=== PATIENT | male | born 1995 | race Caucasian/White ===

== ENCOUNTER 2025-03-03 08:48 | Emergency (ER) | payer BC, SELFPAY ==
[2025-03-03 09:00] VITALS: BP 122/75; PULSE 65; RESP 16; TEMP 36.7; O2SAT 97
--- NOTE | 2025-03-03 09:13 | XR_ITS ---
Examination: Right elbow 3 views Technique: Elbow AP, oblique, lateral 3 views Exam date and time: March 03, 2025 0943 hrs. Indications: Patient fell 2 days ago with injury to the elbow, elbow pain. Findings: No fracture or dislocation. No foreign body Impression: No fracture or dislocation..
--- NOTE | 2025-03-03 09:21 | EDNOTE_ITS ---
Upper Extremity Injury RME/HPI General Chief Complaint: Extremity Injury, Upper Stated Complaint: POSS. R) ELBOW DISLOCATION, HAPPENED YESTERDAY Time Seen by Provider: 03/03/25 08:53 Source: patient Arrival date/time: 03/03/25 08:48 29-year-old male with no known medical history presents to the emergency room with a chief complaint of pain and tenderness to his right elbow after a ground- level fall that occurred yesterday afternoon. Mode of arrival: ambulatory Limitations: no limitations Related Data Allergies Allergy/AdvReac Type Severity Reaction Status Date / Time No Known Allergies Allergy Verified 03/03/25 08:52 Review of Systems Review of Systems Systems Reviewed: All systems reviewed, normal except as documented Constitutional Constitutional: Reports system reviewed and no additional complaints, except as documented, Denies fatigue, Denies fever(s), Denies headache(s) and Denies weakness Eyes Eyes: Reports system reviewed and no additional complaints, except as documented, Denies blurry vision and Denies change in vision ENT Ears, Nose, Mouth, and Throat: Reports system reviewed and no additional complaints, except as documented, Denies otalgia, Denies headache(s), Denies nasal congestion, Denies throat swelling and Denies vertigo Cardiovascular Cardiovascular: Reports system reviewed and no additional complaints, except as documented, Denies chest pain, Denies dyspnea and Denies dyspnea on exertion Respiratory Respiratory: Reports system reviewed and no additional complaints, except as documented, Denies chest congestion, Denies cough, Denies dyspnea, Denies dyspnea on exertion and Denies wheezing Gastrointestinal Gastrointestinal: Reports system reviewed and no additional complaints, except as documented, Denies abdominal pain, Denies cramping, Denies nausea and Denies vomiting Genitourinary Genitourinary: Reports system reviewed and no additional complaints, except as documented, Denies dysuria and Denies hematuria Musculoskeletal Musculoskeletal: Reports system reviewed and no additional complaints, except as documented, Denies back pain, Reports joint swelling and Reports limited range of motion Integumentary/Breasts Skin/Breast: Reports system reviewed and no additional complaints, except as documented and Denies wounds Neurologic Neurologic: Reports system reviewed and no additional complaints, except as documented, Denies confusion, Denies headache(s), Denies lack of coordination, Denies vertigo and Denies weakness Psychiatric Psychiatric: Reports system reviewed and no additional complaints, except as documented, Denies anxiety, Denies confusion, Denies depression, Denies paranoia, Denies suicidal ideation and Denies tactile hallucinations Endocrine Endocrine: Reports system reviewed and no additional complaints, except as documented and Denies fatigue Hematologic/Lymphatic Hematologic/Lymphatic: Reports system reviewed and no additional complaints, except as documented and Denies lymphadenopathy Allergic/Immunologic Allergic/Immunologic: Reports system reviewed and no additional complaints, except as documented, Denies throat swelling, Denies urticaria and Denies wheezing Past Medical History Past Medical History CARDIAC: Negative Congestive Heart Failure RESPIRATORY: Negative Chronic Obstructive Pulmonary Disease (COPD) GENITOURINARY: Negative Renal Disease ENDOCRINE: Negative Diabetes Mellitus Type 1 or Diabetes Mellitus Type 2 Social History SMOKING STATUS: Current every day smoker ED Exam General Limitations: Present no limitations General appearance: Present alert and in no apparent distress Head Head exam: Present atraumatic Eye Eye exam: Present normal appearance, PERRL and EOMI ENT ENT exam: Present normal exam, normal oropharynx and mucous membranes moist Neck Neck exam: Present normal inspection, full ROM and trachea midline Chest Chest inspection: Present normal inspection and symmetric chest wall rise Respiratory Respiratory exam: Present normal lung sounds bilaterally Cardiovascular Cardiovascular exam: Present regular rate, normal rhythm and normal heart sounds Abdominal Exam Abdominal exam: Present soft and normal bowel sounds Extremities Exam Extremities exam: Present normal inspection and full ROM Expanded Upper Extremity Exam Shoulder exam: Present normal inspection Arm exam: Present normal inspection Elbow exam: Present tenderness, swelling, pain w/ pronation/supination and tenderness over radial head; Absent deformity Back Exam Back exam: Present normal inspection and full ROM Neurological Exam Neurological exam: Present alert, oriented X3 and CN II-XII intact Psychiatric Psychiatric exam: Present normal affect and normal mood Skin Skin exam: Present warm, dry, intact and normal color Course Quality Measures none Orders Category Date Time Status jorje wrap [Splint / Immobilizer] STAT Care 03/03/25 11:10 Active XR elbow comp RT min 3V Stat Exams 03/03/25 09:13 Completed Vital Signs Vital signs: Vital Signs Temperature 98.0 F 03/03/25 09:00 Pulse Rate 65 03/03/25 09:00 Respiratory Rate 16 03/03/25 09:00 Blood Pressure 122/75 03/03/25 09:00 Pulse Oximetry (%) 97 03/03/25 09:00 Oxygen Delivery Method Room Air 03/03/25 09:00 O2 saturation 97% within normal limits Extremity Injury MDM Narrative MDM Narrative:: 29-year-old male with no known medical history presents to the emergency room with a chief complaint of pain and tenderness to his right elbow after a ground- level fall that occurred yesterday afternoon. Patient is hemodynamically stable and in no apparent distress. Physical examination shows pain and tenderness to the right elbow. The patient has limited range of motion. X-ray was negative for any acute fracture or dislocation. An Jorje wrap was placed. The findings are consistent with lateral epicondylitis. Patient was discharged and educated to follow-up with primary care provider in the next 24 to 48 hours and return to the emergency room for any evidence of worsening signs or symptoms Patient data External records reviewed:: [facility] previous records Clinical information provided by:: patient Social determinants that could affect healthcare access:: none Patient has the following chronic illnesses:: No chronic illness How is presenting disease/condition affected by chronic disease/condition?: no chronic disease Evaluation data The following diagnostics were reviewed and interpreted by me:: lab results and radiology exam(s) Lab and/or radiology exams considered but not ordered:: Labs and radiology exams considered and ordered Interpretation Summary: Elbow [id number]: No fracture or dislocation. No foreign body Impression: No fracture or dislocation.. Medications / Prescriptions Medications or Prescriptions considered but not ordered:: No medication given Medication administrations:: No medication given Consultations Consultation(s) initiated? (list below): No Diagnosis Upper Extremity Injury Differential Diagnosis: other (Elbow fracture/elbow dislocation lateral epicondylitis/medial epicondylitis) Most likely diagnosis given after review of the tests above:: Lateral epicondylitis Admission Indicated Admission indicated?: not indicated Admission Request Was there a request for admission?: No Disposition Plan Disposition Plan: Discharge Discharge Attestation Discharge Attestation: The patient and all family members were given an opportunity to ask questions and understood the discharge instructions. Discharge instructions specifically effects, indications for sooner follow up or return to the emergency department, and the expected course of current diagnosis. Patient condition: Stable Discharge Plan Plan Patient Disposition: HOME (Self Care) Discharge Disposition comment: Stable Prescriptions/Referrals Referrals: No Primary/Family,Physician [Primary Care Provider] - In 1 week Problem List Clinical Impression: Epicondylitis, lateral (tennis elbow) Patient/Caregiver Discharge Instructions Education Materials: Understanding Lateral Epicondylitis, Treating Tennis Elbow, ED Tennis Elbow Additional Instructions: Please follow-up with your primary care provider in the next 24 to 48 hours. X-rays were completed and were negative for any acute fractures or dislocations. Your findings are consistent with lateral epicondylitis. For any evidence of worsening signs or symptoms return to the emergency room immediately Print Language: Malaysian Stand Alone Forms: Umm Award Info., Work/School Release, Patient Portal Info Letter PA/SUPPORTIVE EMPLOYMENT CASE MANAGER Supervising Physician PA/SUPPORTIVE EMPLOYMENT CASE MANAGER Supervising Physician: Dr. Ballesteros
[2025-03-03 11:34] VITALS: BP 126/85; PULSE 62; RESP 16; TEMP 36.7; O2SAT 97
== END 2025-03-03 11:39 | disposition home or self-care (01) ==
PROVIDERS: Emergency Provider Family Medicine
DX: M77.11 Lateral epicondylitis, right elbow (principal)
CPT/HCPCS: 73080; 99283